=== PATIENT | male | born 1950 | race African-American/Black ===

== ENCOUNTER 2021-03-04 12:15 | Emergency (ER) | payer OTHER ==
[~2021-03-04] VITALS: Ht 177.8 cm; Wt 80.0 kg
[2021-03-04] MEDS ORDERED: MORPHINE SULFATE 4 MG/ML CPJ (NOT FOR IM USE) IV STA (15:03)
[2021-03-04] MEDS ORDERED: ASPIRIN 81MG TABLET PO ONE (15:15)
[2021-03-04] MEDS ORDERED: NITROGLYCERIN 0.4MG TABLET SL SL PRN (16:15)
[2021-03-04 16:37] LABS: CHLORIDE 106 mEq/L (98-107)
[2021-03-04 16:38] LABS: BASOPHILS % 0.3 % (0.0-2.0); EOSINOPHILS % 4.2 % (0.0-5.0); HEMATOCRIT. 41.8 % (42.0-52.0); HEMOGLOBIN. 13.6 g/dL (14.0-18.0); LYMPHOCYTES % 21.1 % (20.0-50.0); MEAN CORPUSCULAR HEMOGLOBIN 30.2 pg (28.0-32.0); MEAN CORPUSCULAR VOLUME 92.8 fL (80.0-94.0); MEAN PLATELET VOLUME 7.5 fl (7.4-10.4); MONOCYTES % 8.8 % (2.0-8.0); NEUTROPHILS % 65.6 % (40.0-76.0); PLATELET 179 x1000/uL (130-400); RED BLOOD CELL COUNT 4.51 mill/uL (4.7-6.1); RED CELL DISTRIBUTION WIDTH 13.7 % (11.6-14.6)
[2021-03-04] MEDS ORDERED: ACETAMINOPHEN 325MG TABLET PO PRN ×2 (19:15)
[2021-03-04] MEDS ORDERED: CLONIDINE 0.1MG TABLET PO PRN (19:15)
[2021-03-04] MEDS ORDERED: ONDANSETRON HCL 4MG/2ML INJ IV PRN (19:15)
[2021-03-04] MEDS ORDERED: MAGNESIUM/ALUMINUM HYDROXIDE/SIMETHICONE 30ML UDC PO PRN (19:15)
[2021-03-04] MEDS ORDERED: HYDROCODONE/ACETAMINOPHEN 5/325MG TABLET PO PRN (19:15)
[2021-03-04] MEDS ORDERED: GUAIFENESIN 200MG/10ML SUGAR FREE UDC PO PRN (19:15)
[2021-03-04] MEDS ORDERED: ENOXAPARIN 40MG/0.4ML SYR SUBCUT SCH (20:00)
[2021-03-05] MEDS ORDERED: NALOXONE HCL 0.4 MG/ML 1ML VIAL IV PRN (02:15)
[2021-03-05 06:33] LABS: BASOPHILS % 0.8 % (0.0-2.0); EOSINOPHILS % 6.6 % (0.0-5.0); HEMATOCRIT. 38.3 % (42.0-52.0); HEMOGLOBIN. 12.8 g/dL (14.0-18.0); LYMPHOCYTES % 31.7 % (20.0-50.0); MEAN CORPUSCULAR HEMOGLOBIN 30.8 pg (28.0-32.0); MEAN PLATELET VOLUME 7.2 fl (7.4-10.4); MONOCYTES % 10.5 % (2.0-8.0); NEUTROPHILS % 50.4 % (40.0-76.0); PLATELET 158 x1000/uL (130-400); RED BLOOD CELL COUNT 4.17 mill/uL (4.7-6.1); RED CELL DISTRIBUTION WIDTH 13.9 % (11.6-14.6)
[2021-03-05 06:44] LABS: CHLORIDE 110 mEq/L (98-107)
[2021-03-05 06:56] LABS: PHOSPHORUS 4.3 mg/dL (2.5-4.9)
[2021-03-05] MEDS ORDERED: AMLODIPINE 10MG TABLET PO SCH (09:00)
[2021-03-05] MEDS ORDERED: LISINOPRIL 10MG TABLET PO SCH (09:00)
[2021-03-05] MEDS ORDERED: METOPROLOL SUCCINATE 50MG ER TABLET PO SCH (09:00)
[2021-03-05 09:45] VITALS: BP 132/70
== END 2021-03-05 10:54 | disposition left against medical advice (07) ==
LOC: ER 12:15 → SUPCPDRO 19:00 → ER 03-05 10:54 → CANBEDREQ 03-06 10:41
DX: R07.9 Chest pain, unspecified (principal); I25.10 Atherosclerotic heart disease of native coronary artery without angina pectoris; I11.9 Hypertensive heart disease without heart failure; I25.2 Old myocardial infarction; E78.5 Hyperlipidemia, unspecified; Z88.0 Allergy status to penicillin; Z20.822 Contact with and (suspected) exposure to COVID-19; Z95.820 Peripheral vascular angioplasty status with implants and grafts
CPT/HCPCS: 36415; 71045; 80048; 80053; 83735; 83880; 84100; 84484; 85025; 87426; 93005; 96372; 96374; 99285; J1650; J2270